=== PATIENT | female | born 1990 | race Caucasian/White ===

== ENCOUNTER → 2020-07-11 | Outpatient (REF) | payer OTHER | LOC: M LAB REF 10:36 | PROVIDERS: ATTEND Physician Assistant | DX: Z11.59 Encounter for screening for other viral diseases (principal) ==

== ENCOUNTER → 2025-03-11 | Outpatient (REF) | payer BC, OTHER ==
[2025-03-11 13:02] LABS: URINE PREG TEST NEGATIVE (NEGATIVE)
== END ==
LOC: M LAB REF 12:17
PROVIDERS: ATTEND Physician Assistant Medical
DX: N91.2 Amenorrhea, unspecified (principal)

== ENCOUNTER → 2025-04-15 | Outpatient (REF) | payer BC ==
[2025-04-18 13:48] LABS: HPV APTIMA Not Detected (Not Detected)
== END ==
LOC: M PLALAB 15:34
PROVIDERS: ATTEND Physician Assistant
DX: Z12.4 Encounter for screening for malignant neoplasm of cervix (principal)
CPT/HCPCS: 87624; G0123